=== PATIENT | male | born 2000 | race Caucasian/White ===

== ENCOUNTER 2020-07-29 16:28 | Emergency (ER) | payer MEDICAID ==
[~2020-07-29] VITALS: Ht 177.8 cm; Wt 89.5 kg
--- NOTE | 2020-07-29 16:53 | NUR ---
APPLICATIONS CHEMIST: AMBULATORY TO ROOM FROM LOBBY
[2020-07-29 18:34] LABS: MICROSCOPIC INDICATED
--- NOTE | 2020-07-29 18:50 | NUR ---
BEDSIDE REPORT FROM MARIA R ORNELAS, PT CARE TRANSFERRED AT THIS TIME.
--- NOTE | 2020-07-29 18:50 | NUR ---
PT RESTING IN GURNEY, SITTING UP, FRIEND AT BS, NAD, APPEARS COMFORTABLE, UP FOR RECHECK, DENIES ADDITIONAL QUESTIONS OR NEEDS, WCTM. PT UP FOR RECHECK
[2020-07-29 18:57] VITALS: BP 126/82
--- NOTE | 2020-07-29 19:14 | NUR ---
Patient given discharge instructions and they have confirmed that they understand the instructions. Patient ambulatory with steady gait. NAD, DENIES ADDITIONAL NEEDS AT THIS TIME, ALL QUESTIONS ANSWERED APPROPRIATELY. NO PERSONAL BELONGINGS LEFT IN ROOM AT TIME OF DC.
== END 2020-07-29 19:15 | disposition home or self-care (01) ==
LOC: ED 17:01
DX: R31.29 Other microscopic hematuria (principal); R36.1 Hematospermia
CPT/HCPCS: 76870; 81001; 87086; 99284